=== PATIENT | female | born 1960 | race Caucasian/White ===

== ENCOUNTER 2018-10-15 10:14 | Outpatient (CLI) | payer MEDICARE ==
--- NOTE | 2018-10-15 22:00 | ULT ---
THYROID ULTRASOUND 10/15/18 Comparison is made with the prior study of 04/23/18. For whatever reason, this patient's thyroid visualizes extremely poorly today and is nearly isoechoic with all the surrounding tissue. This greatly reduces the sensitivity of the exam. The overall size of the thyroid gland has not changed in the interval. Today, the right lobe measures 2.5 x 0.9 x 1.0 cm and the left measures 2.4 x 0.7 x 0.6 cm. These are quite comparable. A hypoechoic nodule is seen in the mid portion of the right lobe that measured 0.9 x 0.3 x 0.5 cm. Th is measured at a maximum of 1.2 cm before. A nodule previously seen in the lower pole on the right is not visible on this scan. I could not detect any definite nodule on today's scan, whereas two were seen the prior time. The sen sitivity is so poor that these nodules must be nearly isoechoic with respect to the remaining parench yma. At the very least, one does not see anything that appears to be growth of nodules. IMPRESSION: Very low sensitivity study as the thyroid is nearly isoechoic with surrounding structures today. The thyroid size is stable. The largest nodule in the right lobe has not increased in size. Nodules were not visible elsewhere but there is certainly no growth over time. POS: HOME
== END 2018-10-15 10:15 | disposition home or self-care (01) ==
LOC: BURULT 10:14
PROVIDERS: ATTEND Family Medicine
DX: E03.9 Hypothyroidism, unspecified (principal); E04.1 Nontoxic single thyroid nodule; R93.89 Abnormal findings on diagnostic imaging of other specified body structures
CPT/HCPCS: 76536

== ENCOUNTER 2019-12-12 11:31 | Emergency (ER) | payer MEDICARE ==
[2019-12-12 12:06] LABS: #Basophils 0.1 thou/uL (0.0-0.2); #Eosinphils 0.2 thou/uL (0.0-0.7); #Lymphocytes 2.5 thou/uL (1.20-3.40); #Monocytes 0.7 thou/uL (0.11-0.59); #Neutrophils 8.4 thou/uL (1.40-6.50); %Basophils 1.2 % (0.0-1.0); %Eosinophils 1.3 % (0.0-10.0); %Lymphocytes 20.8 % (21.0-51.0); %Monocytes 5.8 % (0.0-10.0); %Neutrophils 70.9 % (42.0-75.0); Hemoglobin 13.8 g/dL (12.0-16.0); Mean Corpuscular HGB CONC 31.6 g/dL (32.0-36.0); Mean Corpuscular Volume 91.8 fL (78.0-98.0); Mean Platelet Volume 7.1 fL (7.4-10.4); Platelet Count 235 thou/uL (130-400); RBC Distribution Width 12.9 % (11.5-14.5); Red Blood Cell (RBC) Count 4.75 mill/uL (4.20-5.40); White Blood Cell (WBC) Count 11.9 thou/uL (4.8-10.8)
[2019-12-12 12:19] LABS: ALT (SGPT) 22 U/L (8-55); AST (SGOT) 26 U/L (5-34); Albumin 4.7 g/dL (3.5-5.0); Alkaline Phosphatase 96 U/L (40-110); Anion Gap 16 mmol/L (10-20); BUN (Urea Nitrogen) 15 mg/dL (9.8-20.1); Bilirubin, Total 0.4 mg/dL (0.2-1.2); CK (CPK) 179 U/L (29-168); Calc. Creatinine Clearance 0 mL/min (70-130); Calcium 10.5 mg/dL (7.8-10.44); Carbon Dioxide 26 mmol/L (22-29); Chloride 104 mmol/L (98-107); Estimated GFR-MDRD 76; Globulin 3.3 g/dL (2.4-3.5); Glucose 90 mg/dL (70-105); Potassium 4.7 mmol/L (3.5-5.1); Sodium 141 mmol/L (136-145)
[2019-12-12 12:20] LABS: CKMB 2.1 ng/mL (0-6.6)
--- NOTE | 2019-12-12 19:31 | RAD ---
PORTABLE CHEST: 12/12/19 An AP portable film at 1155 shows a normal sized heart and clear lungs. No infiltrate or effusion was seen. There is no vascular congestion or edema. IMPRESSION: No acute thoracic finding. POS: HOME
== END 2019-12-12 12:37 | disposition home or self-care (01) ==
LOC: BURERS 11:31
DX: R07.9 Chest pain, unspecified (principal); E03.9 Hypothyroidism, unspecified; E78.2 Mixed hyperlipidemia; I10 Essential (primary) hypertension; F32.9 Major depressive disorder, single episode, unspecified; F17.210 Nicotine dependence, cigarettes, uncomplicated; Z79.899 Other long term (current) drug therapy
CPT/HCPCS: 71045; 80053; 82550; 82553; 84484; 85025; 93005